=== PATIENT | female | born 1980 | race Caucasian/White ===

== ENCOUNTER 2017-06-13 09:51 | Inpatient (IN) | payer OTHER ==
[~2017-06-13] VITALS: Ht 149.9 cm; Wt 69.5 kg
[2017-06-13] MEDS ORDERED: NECON 1/351 TAB PO (10:49)
[2017-06-13] MEDS ORDERED: LACTULOSE10 GM/152 PO (10:50)
[2017-06-13] MEDS ORDERED: COLACE100 MG PO (10:50)
[2017-06-13] MEDS ORDERED: DEPAKOTE ER500 MG PO (10:50)
[2017-06-13] MEDS ORDERED: LEVOTHYROXIN0.025 M2 PO (10:50)
[2017-06-13] MEDS ORDERED: BENZTROPINE MESY1 MG PO (10:51)
[2017-06-13] MEDS ORDERED: RISPERIDONE4 M2 PO (10:51)
[2017-06-13] MEDS ORDERED: OLANZAPINE10 MG PO (10:52)
[2017-06-13] MEDS ORDERED: IBUPROFEN400 MG PO (10:52)
[2017-06-13] MEDS ORDERED: DDAVP0.1 MG PO (10:54)
[2017-06-13 11:11] LABS: BASOPHIL % 0.3 % (0-2); PLATELET COUNT 254 x10^3mcL (130-400); RED CELL DISTRIBUTION WIDTH 14.5 % (11.5-14.5)
[2017-06-13 11:19] LABS: CALCIUM 8.9 mg/dL (8.5-10.1); CARBON DIOXIDE 31.5 mmol/L (21-32); CHLORIDE SERUM 100 mmol/L (98-107); CREATININE SERUM 0.6 mg/dL (0.6-1.0); GFR1 > 60 mL/min; GLUCOSE SERUM 88 mg/dL (74-106); POTASSIUM SERUM 4.1 mmol/L (3.5-5.1); SODIUM SERUM 136 mmol/L (136-145)
[2017-06-13 11:23] LABS: ALKALINE PHOSPHATASE 125 U/L (46-116); ALT/SGPT 35 U/L (14-59); AST/SGOT 21 U/L (15-37); BILIRUBIN TOTAL 0.2 mg/dL (0.20-1.00); TOTAL PROTEIN, SERUM 7.4 g/dL (6.4-8.2)
[2017-06-13 11:24] LABS: ALBUMIN 2.7 g/dL (3.4-5.0)
[2017-06-13 13:20] VITALS: BP 93/61
[2017-06-13 13:28] LABS: T3 TOTAL 1.29 ng/mL
[2017-06-13 13:30] LABS: FREE T4 0.96 ng/dL (0.76-1.46); FREE THYROXINE INDEX 3.2 ug/dL (1.4-4.5); T4(THYROXINE) 11.7 ug/dL (4.7-13.3)
[2017-06-13 13:44] LABS: CHOLESTEROL/HDL RATIO 3.5; PHOSPHOROUS 2.6 mg/dL (2.5-4.9)
[2017-06-13 14:30] VITALS: Ht 149.9 cm; Wt 69.5 kg
[2017-06-13 15:47] LABS: microscopic required? NO
[2017-06-13 15:55] LABS: urine erythrocyte NEGATIVE (NEGATIVE)
[2017-06-13 16:08] LABS: AMPHETAMINE QUAL UR NONE DETECTED (NEG <=1000)
[2017-06-13 17:20] VITALS: BP 111/70
[2017-06-13 21:10] VITALS: BP 95/70
[2017-06-14 05:53] VITALS: BP 103/66
[2017-06-14 06:12] LABS: BASOPHIL % 0.2 % (0-2); PLATELET COUNT 276 x10^3mcL (130-400)
[2017-06-14 06:41] LABS: RED CELL DISTRIBUTION WIDTH 14.6 % (11.5-14.5)
[2017-06-14 09:13] VITALS: BP 92/69
[2017-06-14 18:08] VITALS: BP 111/81
[2017-06-14 20:59] VITALS: BP 119/68
[2017-06-15 05:21] VITALS: BP 116/62
[2017-06-15] MEDS ORDERED: LAC PO (11:09)
[2017-06-15] MEDS ORDERED: [UNRECOGNIZED DRUG - CODE] TOP (11:09)
[2017-06-15 11:16] LABS: BASOPHIL % 0.2 % (0-2); PLATELET COUNT 334 x10^3mcL (130-400)
[2017-06-15] MEDS ORDERED: CLINDAMYCIN HC300 MG PO (11:16)
[2017-06-15 11:25] LABS: RED CELL DISTRIBUTION WIDTH 14.7 % (11.5-14.5)
[2017-06-15] MEDS ORDERED: CONTOUR NEXT1 EACH MC (11:49)
[2017-06-15] MEDS ORDERED: BLOOD LANCETS1 EACH MC (11:51)
[2017-06-15] MEDS ORDERED: ADULT LOW DOSE81 MG PO (12:42)
[2017-06-15] MEDS ORDERED: LIPI10 PO (12:42)
== END 2017-06-15 14:38 | DRG 383 ==
LOC: ED 09:51 → MU 11:52 → DU 11:52 → MU 06-14 05:15
PROVIDERS: Emergency Medicine; ADMIT Family Medicine
DX: L03.115 Cellulitis of right lower limb (principal); E43 Unspecified severe protein-calorie malnutrition; D68.69 Other thrombophilia; M62.50 Muscle wasting and atrophy, not elsewhere classified, unspecified site; D64.89 Other specified anemias; E11.65 Type 2 diabetes mellitus with hyperglycemia; F71 Moderate intellectual disabilities; X10.1XXA Contact with hot food, initial encounter; Y93.89 Activity, other specified; Y92.048 Other place in boarding-house as the place of occurrence of the external cause; F39 Unspecified mood [affective] disorder; E03.9 Hypothyroidism, unspecified; Z79.899 Other long term (current) drug therapy; Z68.31 Body mass index [BMI] 31.0-31.9, adult
CPT/HCPCS: 82962; 83880; 84439; J0295; J3490; J7030; Q0092

== ENCOUNTER 2019-03-17 07:33 | Emergency (ER) | payer OTHER ==
[~2019-03-17] VITALS: Ht 157.5 cm; Wt 68.5 kg
[~2019-03-17 07:33] MED LIST: ADULT LOW DOSE81 MG PO; BENZTROPINE MESY1 MG PO; BLOOD LANCETS1 EACH MC; CLINDAMYCIN HC300 MG PO; COLACE100 MG PO; CONTOUR NEXT1 EACH MC; DDAVP0.1 MG PO; DEPAKOTE ER500 MG PO; IBUPROFEN400 MG PO; LAC PO; LACTULOSE10 GM/152 PO; LEVOTHYROXIN0.025 M2 PO; LIPI10 PO; NECON 1/351 TAB PO; OLANZAPINE10 MG PO; RISPERIDONE4 M2 PO; [UNRECOGNIZED DRUG - CODE] TOP
[2019-03-17 07:39] VITALS: BP 140/76; Ht 157.5 cm; Wt 68.5 kg
== END 2019-03-17 08:59 | disposition home or self-care (01) ==
LOC: ED 07:33
DX: S01.01XA Laceration without foreign body of scalp, initial encounter (principal); W18.39XA Other fall on same level, initial encounter; E03.9 Hypothyroidism, unspecified; Y93.89 Activity, other specified; Y92.89 Other specified places as the place of occurrence of the external cause; Y99.8 Other external cause status
CPT/HCPCS: 90715; J2001